=== PATIENT | female | born 1950 | race Caucasian/White ===

== ENCOUNTER → 2017-07-28 | Outpatient (CLI) | payer OTHER | LOC: CIMAGING 10:07 | PROVIDERS: ATTEND Family Medicine | DX: Z12.31 Encounter for screening mammogram for malignant neoplasm of breast (principal) | CPT/HCPCS: G0202 ==

== ENCOUNTER → 2018-08-10 | Outpatient (CLI) | payer OTHER | LOC: CIMAGING 09:49 | PROVIDERS: ATTEND Family Medicine | DX: Z12.31 Encounter for screening mammogram for malignant neoplasm of breast (principal); Z80.3 Family history of malignant neoplasm of breast ==

== ENCOUNTER 2018-12-09 05:22 | Day surgery (SDC) | payer OTHER ==
[2018-12-09] MEDS ORDERED: ceFAZolin 2 GM/DEXTROSE 100 ML IV ONE (05:40)
[2018-12-09] MEDS ORDERED: LR 1,000 ML IV ONE (05:40)
[2018-12-09] MEDS ORDERED: LIDOCAINE 1% 2 ML INJ ID PRN (05:40)
[2018-12-09] MEDS ORDERED: ACETAMINOPHEN 500 MG TAB PO ONE (05:40)
[2018-12-09] MEDS ORDERED: PHENAZOPYRIDINE HCL 200 MG TAB PO ONE (05:40)
[2018-12-09] MEDS ORDERED: SCOPOLAMINE HYDROBROMIDE 1 MG/3 DAYS PATCH TD ONE (06:48)
[2018-12-09] MEDS ORDERED: MIDAZOLAM 2 MG/2 ML VIAL IVP ONE (06:48)
--- NOTE | 2018-12-09 06:49 | PDANEPAE ---
ANE Past Medical History - Cardiovascular History Hx Hypertension: No Hx Arrhythmias: No Hx Chest Pain: No Hx Coronary Artery / Peripheral Vascular Disease: No Hx CHF / Valvular Disease: No Hx Palpitations: No Cardiovascular History Comment: hyperlipidemia - Pulmonary History Hx COPD: No Hx Asthma/Reactive Airway Disease: No Hx Recent Upper Respiratory Infection: No Hx Oxygen in Use at Home: No Hx Sleep Apnea: No Sleep Apnea Screening Result - Last Documented: Negative - Neurologic History Hx Cerebrovascular Accident: No Hx Seizures: No Hx Dementia: No - Endocrine History Hx Diabetes: No - Renal History Hx Renal Disorders: No - Liver History Hx Hepatic Disorders: No - Neurological & Psychiatric Hx Hx Neurological and Psychiatric Disorders: Yes Neurological / Psychiatric History Comment: medical procedure anxiety - Cancer History Hx Cancer: No - Congenital Disorder History Hx Congenital Disorders: No - GI History Hx Gastrointestinal Disorders: No - Other Health History Other Health History: none - Chronic Pain History Chronic Pain: No - Surgical History Prior Surgeries: hysterectomy 1997 ANE Review of Systems Review of Systems: - Exercise capacity METS (RN): 4 METS ANE Patient History - Allergies Allergies/Adverse Reactions: No Known Allergies Allergy (Verified 11/25/18 11:25) - Home Medications Home medications: home medication list seen and reviewed Home Medications: Estrogens,Conjugated [Premarin] 12/14/11 [Last Taken 12/14/11] Ambien 11/25/18 [Last Taken Unknown] Aspirin 81mg (*) 11/25/18 [Last Taken Unknown] Glucosamine HCl 11/25/18 [Last Taken Unknown] Meclizine HCl 11/25/18 [Last Taken Unknown] [place] 369 11/25/18 [Last Taken Unknown] Phenobarb/Hyoscy/Atropine/Scop [ Extentabs] 11/25/18 [Last Taken Unknown] Pravastatin Sodium 11/25/18 [Last Taken Unknown] Quetiapine Fumarate 11/25/18 [Last Taken Unknown] - NPO status NPO Status: no food or drink >8 hours NPO Since - Liquids (Date): 12/08/18 NPO Since - Liquids (Time): 20:30 NPO Since - Solids (Date): 12/08/18 NPO Since - Solids (Time): 19:00 - Smoking Hx Smoking Status: Former smoker - Family Anes Hx Family Hx Anesthesia Complications: none ANE Labs/Vital Signs - Vital Signs Vital Signs: reviewed preoperatively; see RN documention for details Blood Pressure: 129/73 Heart Rate: 70 Respiratory Rate: 16 O2 Sat (%): 93 Height: 167.64 cm Weight: 68.492 kg ANE Anesthesia Plan Anesthesia Plan: general endotracheal anesthesia
[2018-12-09] MEDS ORDERED: fentaNYL 100 MCG/2 ML INJ ONE (06:56)
[2018-12-09] MEDS ORDERED: BUPIVACAINE/EPI 0.5% 30 ML SDV ONE (06:57)
[2018-12-09] MEDS ORDERED: PROPOFOL 200 MG/20 ML VIAL ONE (06:57)
[2018-12-09] MEDS ORDERED: LIDOCAINE 2% 5 ML SDV ONE (07:01)
[2018-12-09] MEDS ORDERED: ROCURONIUM 50 MG/5 ML VIAL ONE (07:01)
[2018-12-09] MEDS ORDERED: DEXAMETHASONE 4 MG/ML VIAL ONE (07:02)
--- NOTE | 2018-12-09 07:13 | PDHPUP ---
History & Physical Update H&P update statement: This history and physical update is based on an assessment of the patient which was completed after admission or registration (within 24 hours), but prior to the surgery/procedure. H&P update: H&P reviewed & patient examined, no change in patient's condition since H&P completed
[2018-12-09] MEDS ORDERED: HYDROmorphONE/DILAUDID 2 MG/ML INJ ONE (07:53)
[2018-12-09] MEDS ORDERED: ONDANSETRON 4 MG/2 ML VIAL ONE ×2 (08:51→09:22)
[2018-12-09] MEDS ORDERED: KETOROLAC 30 MG/1 ML SDV ONE (08:51)
[2018-12-09] MEDS ORDERED: fentaNYL 100 MCG/2 ML INJ IVP PRN (08:57)
[2018-12-09] MEDS ORDERED: HYDROmorphONE/DILAUDID 2 MG/ML INJ IVP PRN (08:57)
[2018-12-09] MEDS ORDERED: LABETALOL HCL 5 MG/ML 20 ML MDV IVP PRN (08:57)
[2018-12-09] MEDS ORDERED: DIAZEPAM 5 MG/ML 1 ML SYR IVP PRN (08:57)
[2018-12-09] MEDS ORDERED: ALBUTEROL 3 ML DEYVIAL IH PRN (08:57)
[2018-12-09] MEDS ORDERED: ONDANSETRON 4 MG/2 ML VIAL IVP PRN (08:57)
[2018-12-09] MEDS ORDERED: MEPERIDINE 25 MG/0.5 ML AMP IVP PRN (08:57)
[2018-12-09] MEDS ORDERED: LR 500 ML IV PRN (08:57)
[2018-12-09] MEDS ORDERED: NALOXONE HCL 0.4 MG/ML INJ IVP PRN (08:57)
--- NOTE | 2018-12-09 09:08 | POSTOPPROG ---
Post Op Note Date of Operation: 12/09/18 Surgeon: Richard Pierson Net Washer: Shamika Azevedo Anesthesiologist: Amie Anesthesia: GET(General Endotracheal) Pre-op Diagnosis: Vaginal prolapse Post-op Diagnosis: Same Procedure: Robotic sacrocolpopexy, cysto Findings: No ureteral or bladder injury Inf/Abcess present in the surg proc area at time of surgery?: No EBL: Minimal Complications: None
[2018-12-09] MEDS ORDERED: PROMETHAZINE HCL 25 MG/ML INJ ONE (09:33)
[2018-12-09] MEDS: PROMETHAZINE HCL 25 MG/ML INJ IVP PRN ×2 (09:35→10:02)
--- NOTE | 2018-12-09 09:47 | POSTANESTH ---
Post Anesthetic Evaluation Cardiovascular Status: Normal, Stable Respiratory Status: Normal, Stable Level of Consciousness/Mental Status: Can Participate in Eval Pain Control: Adequate, Prn Tx Ordered Nausea/Vomiting Control: Adequate, Prn Tx Ordered Complications Possibly Related to Anesthesia: None Noted
--- NOTE | 2018-12-09 10:19 | GOP ---
DATE OF OPERATION: 12/09/2018 SURGEON: Richard Pierson MD CASH MANAGEMENT ASSOCIATE: Shamika Azevedo CFA. ANESTHESIA: General. PREOPERATIVE DIAGNOSIS: 1. Rectocele. 2. Cystocele. 3. Vaginal vault prolapse. POSTOPERATIVE DIAGNOSIS: 1. Rectocele. 2. Cystocele. 3. Vaginal vault prolapse. PROCEDURE PERFORMED: 1. Robotic-assisted laparoscopic sacrocolpopexy with mesh. 2. Repair of cystocele and rectocele. 3. Left ureterolysis. 4. Cystoscopy. FINDINGS: SPECIMENS: None. ESTIMATED BLOOD LOSS: Scant. DESCRIPTION OF PROCEDURE: The patient was taken to the operating room where she was identified. Gen eral anesthesia was administered and found to be adequate. She was placed in the lithotomy position and prepared and draped in normal sterile fashion. A Vieira catheter was placed in her bladder. A 1 cm infraumbilical incision was made with a scalpel. The Veress needle with the CO2 gas flowing w as advanced into the peritoneal cavity. The abdomen was then insufflated with carbon dioxide gas. T he 12 mm trocar, followed by the laparoscope were then inserted. The upper abdomen was unremarkable. Two lateral ports were placed on either side under direct visualization. She then was placed in Tr endelenburg position and the da Rita robot docked on the left side. The instruments were then broug ht into the abdominal cavity under direct visualization. The patient had adhesions of bowel within the pelvis. Some were adherent to the sidewall overlying t he left ureter. As a result, a left ureterolysis was required to safely remove the adhesions and bow el without injuring the ureter. The peritoneum over the pelvic brim was incised. The ureter was gen tly dissected free and lateralized off the overlying peritoneum and bowel from the pelvic brim down t o the left uterine artery. Once this was accomplished, the remaining adhesions of bowel were taken d own sharply and the bowel moved into the upper abdomen. A stent was placed in the vagina. The bladder was dissected off the anterior vaginal wall down to th e level of bladder neck. The rectum was dissected off the posterior vaginal wall down to the level o f the perineal body. Measurements were then obtained and the mesh trimmed to size. The sigmoid colon was then retracted laterally. The peritoneum over the sacral promontory was incise d and the fat pad gently dissected off the anterior longitudinal ligament. The mesh was brought into the abdominal cavity. Three sutures of 4-0 [place] were used to attach the distal posterior mesh t o the perineal body. Two additional rows of [place] sutures were placed posteriorly. Three rows we re placed anteriorly to suture the anterior mesh down to the level of the bladder neck and laterally to the paravaginal tissue. The stent was then removed. The sacral arm of the mesh was placed over t he promontory and the tension adjusted to resolve the cystocele and rectocele without undue tension o n the vagina. Two sutures of 2-0 [place] were used to attach the sacral arm of the mesh to the ante rior longitudinal ligament at the level of the upper first sacral vertebral body below the interverte bral disk space. The excess mesh was then trimmed. The peritoneum was closed over the entire mesh. The robot was then undocked. The fascia was closed with 0 Vicryl, skin with 4-0 Monocryl. Cystoscopy was then performed. Both ureters had vigorous jets of urine. There was no evidence of bl adder, nor urethral injury seen. No pathology was seen. Anesthesia was reversed and the patient tete en the PACU awake, in stable condition. COMPLICATIONS: None. DISPOSITION: Patient stable to PACU. /[id number]/MODL
[2018-12-09 13:51] VITALS: BP 126/68
== END 2018-12-09 14:20 | disposition home or self-care (01) ==
LOC: FSGY 05:22
PROVIDERS: ATTEND Obstetrics & Gynecology
DX: N81.2 Incomplete uterovaginal prolapse (principal); E78.5 Hyperlipidemia, unspecified; Z90.710 Acquired absence of both cervix and uterus
CPT/HCPCS: C1763; J0690; J1100; J1170; J1885; J2250; J2405; J2550; J2704; J3010